=== PATIENT | male | born 1975 | race African-American/Black ===

== ENCOUNTER 2016-09-20 10:13 | Emergency (ER) | payer OTHER ==
[~2016-09-20] VITALS: Ht 177.8 cm; Wt 110.0 kg
[~2016-09-20 10:13] MED LIST: FLEXERIL OR; LORTAB 5/3255 MG PO; NAPROSYN375 MG PO; NAPROSYN500 MG PO; NO HOME MEDS; ZITHROMAX250 MG PO; ZOFRAN4 MG/TAB PO
[2016-09-20] MEDS ORDERED: FLEXERIL PO (13:11)
[2016-09-20] MEDS ORDERED: NAPROSYN500 MG PO (13:11)
[2016-09-20 13:37] VITALS: BP 131/83
== END 2016-09-20 13:37 | disposition home or self-care (01) | DRG 563 ==
LOC: ED 10:13
DX: S39.012A Strain of muscle, fascia and tendon of lower back, initial encounter (principal); X50.1XXA Overexertion from prolonged static or awkward postures, initial encounter; Y93.89 Activity, other specified; Y92.89 Other specified places as the place of occurrence of the external cause

== ENCOUNTER 2022-11-06 13:16 | Emergency (ER) | payer SELFPAY ==
[~2022-11-06] VITALS: Ht 177.8 cm; Wt 108.0 kg
[~2022-11-06 13:16] MED LIST changes: +FLEXERIL PO
[2022-11-06 14:06] VITALS: BP 137/96
== END 2022-11-06 14:17 | disposition home or self-care (01) | DRG 392 ==
LOC: ED 13:16
DX: A05.9 Bacterial foodborne intoxication, unspecified (principal)